=== PATIENT | male | born 1995 | race African-American/Black ===

== ENCOUNTER 2019-09-18 22:02 | Emergency (ER) | payer OTHER, MEDICAID ==
[~2019-09-18] VITALS: Ht 180.3 cm; Wt 83.9 kg
--- NOTE | 2019-09-18 22:03 | NUR ---
Dr. Taylor at bedside for MSE.
[2019-09-18] MEDS ORDERED: [UNRECOGNIZED DRUG - REMARK] (22:09)
[2019-09-18] MEDS ORDERED: [UNRECOGNIZED DRUG - REMARK] (22:09)
[2019-09-18] MEDS ORDERED: ACETAMINOPHEN ES 500 MG TABLET ONE (22:19)
[2019-09-18] MEDS: ACETAMINOPHEN 325 MG TABLET PO ONE (22:21)
--- NOTE | 2019-09-18 22:21 | NUR ---
Pt down for CT for Head CT. Covid precautions observed. Transported via stretcher.
--- NOTE | 2019-09-18 23:02 | NUR ---
Cleared for DC by MD. Written and verbal after care instructions given. Pt is COVID (+). Homeless who is currently being quarantined at [facility]. Nursing Technology Recruiter made aware. Patient given written and verbal discharge instructions. Homeless waiver filled out and signed by patient. Stressed follow up or return to ER for worsening s/s. Ambulance arranged for patient with Covid isolation precautions; Latest ambulance provided by [facility] is at 0300. Pt agreed and Nursing supercharger repair supervisor made aware. Patient is in Room 3A. Isolation precautions being followed. Just waiting for ambulance arrival, ready for DC.
--- NOTE | 2019-09-19 03:18 | NUR ---
Pt still sleeping in bed. [facility] contacted regarding ETA, according to Rocky, they are running late ETA 4 to 4:30. Pt notified and asked to go to bathroom. Pt able to urinate, offered more blankets and patient went back to sleep.
--- NOTE | 2019-09-19 03:45 | NUR ---
Pt started yelling for help, but declines any sort of help. Unable to explain what he is experiencing as well. RN tried to check for blood pressure and O2 saturation, but patient kept bobbing back and forth the bed. For his safety, side rails up x 2 and asked for help. MD arrived to assess the patient immediately, however, unable to keep pt still. Meds ordered for sedation, but patient continued to trash around the bed. All ER nurses came in the room, and still unable to calm patient down and give medication. [facility] was called. Male nurses and security arrived, along with the RN street supervisor. IM shot of Haldol and Ativan finally given on R thigh. However, patient continued to trash around the bed and unable to calm down. At this time, side rails up x 2, and placed on 4 point restraints for his own safety.
[2019-09-19] MEDS ORDERED: HALOPERIDOL LACTATE 5 MG/1 ML VIAL ONE (03:50)
[2019-09-19] MEDS ORDERED: LORAZEPAM 2 MG/1 ML VIAL ONE (03:50)
[2019-09-19] MEDS: HALOPERIDOL LACTATE 5 MG/1 ML VIAL IM ONE (04:10)
[2019-09-19] MEDS: LORAZEPAM 2 MG/1 ML VIAL IM ONE (04:10)
--- NOTE | 2019-09-19 04:45 | NUR ---
Pt is now calm, and has stated that he is now ready to cooperate and wait patiently for ambulance ride home. Followed up with [facility] again, S/W Rocky. According to him, the ambulance is now dropping of a patient at a nearby hospital and will be enroute here.
--- NOTE | 2019-09-19 04:46 | NUR ---
Pt released from restraints.
--- NOTE | 2019-09-19 05:16 | NUR ---
Patient has now been picked up by [facility] EMT's and is cooperative with them. No noted restlessness or combative as displayed earlier. Left in stable condition. COnfirmed understanding of DC teaching earlier. COVID precautions maintained. Will transder back to the [facility].
[2019-09-19 05:20] VITALS: BP 135/70
== END 2019-09-19 05:21 | disposition home or self-care (01) ==
LOC: ER 22:02
DX: U07.1 COVID-19 (principal); R51 Headache; Z59.0 Homelessness; R45.1 Restlessness and agitation
CPT/HCPCS: 70450; 96372; 99285; J1630; J2060; A4663; A9150

== ENCOUNTER 2019-09-21 12:35 | Emergency (ER) | payer OTHER, MEDICAID ==
[~2019-09-21] VITALS: Ht 180.3 cm; Wt 81.6 kg
[~2019-09-21 12:35] MED LIST: [UNRECOGNIZED DRUG - REMARK]; [UNRECOGNIZED DRUG - REMARK]
--- NOTE | 2019-09-21 12:39 | NUR ---
called for gina gaona. pt extremely combative, agitated on arrival. pt was seen here before with the same behavior.
[2019-09-21] MEDS ORDERED: HALOPERIDOL LACTATE 5 MG/1 ML VIAL ONE (12:42)
[2019-09-21] MEDS ORDERED: LORAZEPAM 2 MG/1 ML VIAL ONE (12:43)
[2019-09-21] MEDS: LORAZEPAM 2 MG/1 ML VIAL IM ONE (13:04)
[2019-09-21] MEDS: HALOPERIDOL LACTATE 5 MG/1 ML VIAL IM ONE (13:04)
--- NOTE | 2019-09-21 13:05 | NUR ---
pt calm and this point.will observe to remove the restraint.
--- NOTE | 2019-09-21 13:32 | NUR ---
called Destiny, pt mother, per pt request, t [phone]. Addendum: 09/21/19 at 1445 by MISA pt mother requested the pt to go back from where he came from.
--- NOTE | 2019-09-21 13:54 | NUR ---
called [facility] ambulance to take the pt back to [facility].
--- NOTE | 2019-09-21 14:45 | NUR ---
called pt mother again, updated with d/c, and px. pt mother said that she will try to assisst with the px and medications.
--- NOTE | 2019-09-21 14:46 | NUR ---
Patient given written and verbal discharge instructions. Patient verbalizes understanding of instructions. Patient is ambulatory with steady gait. pt is going to [facility], where pt originally came from.
[2019-09-21 14:52] VITALS: BP 121/77
== END 2019-09-21 14:52 | disposition home or self-care (01) ==
LOC: ER 12:35
DX: U07.1 COVID-19 (principal); R07.89 Other chest pain; Z59.0 Homelessness; F29 Unspecified psychosis not due to a substance or known physiological condition
CPT/HCPCS: 71045; 93005; 96372; 99285; J1630; J2060; A4663